=== PATIENT | female | born 1950 ===

== ENCOUNTER 2024-11-26 21:41 | Emergency (ER) | payer MEDICARE, SELFPAY ==
[2024-11-26 21:46] VITALS: BP 184/73; PULSE 67; RESP 16; TEMP 36.7; O2SAT 98; BMI 24.5
--- OUTSIDE RECORDS SUMMARY | 2024-11-27 00:09 | XMS_ITS | Clinical Summary ---
Author Organization [facility] Address [address] [place] [address] Care Team Providers Care Pull Worker Name Role Phone Lino Arenas MD Primary Care Provider [phone] Allergies Active Allergy Reactions Criticality Noted Date Comments Atenolol Other (See Comments) Fatigue Hydrochlorothiazide Other (See Comments) Hyponatremia Lisinopril DIZZINESS 06/14/2014 Medications pravastatin (PRAVACHOL) 40 MG tabletIndications:M ixed hyperlipidemia Take 1 tablet by mouth daily. 90 tablet 3 09/18/2024 12:33 PM CDT 5 Active metoPROLOL succinate (TOPROL-XL) 100 MG 24 hr tabletIndications:B enign hypertension with stage 3a chronic kidney disease (CMD) Take 1 tablet by mouth daily. 90 tablet 3 09/18/2024 12:33 PM CDT 5 Active amLODIPine (NORVASC) 10 MG tabletIndications:B enign hypertension with stage 3a chronic kidney disease (CMD) Take 1 tablet by mouth daily. 90 tablet 3 09/18/2024 12:33 PM CDT 5 Active Active Problems Problem Noted Date Diagnosed Date Hyperlipidemia 07/11/2015 Vasovagal syncope 07/27/2013 Intolerance of drug 07/27/2013 Overview (07/27/2013): Intolerance of beta blockers with extreme fatigue, depression Intolerance of losartan with elevation of serum creatinine Palpitations 07/13/2013 Overview (07/27/2013): 06/2013: Exercise stress test is significant for good functional capacity at 10.90 METs in a 62 year old , female, Mathew protocol 9.30 minutes, no exercise-induced chest pain,no exercise-induced ischemic ECG changes.High-grade ventricular ectopy including ventricular couplets, triplets, 4 beat run of nonsustained VT-asymptomatic.Myocardial perfusion scan reveals no definite areas of ischemia, EF is 66%. Holter monitor 07/2013 24 hr Holter recording significant for sinus rhythm with rates between 42-122 bpm, rare PAC's. 13,066 ventricular ectopic beats, constituting 13% of total beats. 16 episodes of nonsustained ventricular tachycardia noted, fastest being a 4 beat run at 179beats per minute, longest being a 4 beat run at 148bpm. No significant AV blocks no symptomatic spells noted. Assessment & Plan (07/27/2013 10:38 AM CDT): Holter results discussed with patient, as noted patient has intolerance of beta blockers, other options i.e. no specific medical management, trial of calcium channel blockers etc. are discussed with patient. Patient is most comfortable with the clinical followup without adding additional medications HTN (hypertension) Immunizations Immunization Administration Dates Next Due Devtoo 12Y+ (Requires Dilution) 04/24/2021 ,07/21/2020,06/30/2020 Influenza, high dose, quadrivalent, PF ,03/06/2022,02/23/2021 Influenza, high-dose, trivalent, PF 02/11,04/25/2018,03/05/2017,03/14,03/11/2015 Influenza, recombinant, quad rivalent, egg free, PF 02/26/2019 Influenza, split virus, trivalent 2015,03/11/2015,03/03/2014,03/26,02/18/2012,02/21/2011,02/17/2010 ,02/02/2009,05/01/2000,03/28/1999 Influenza, split virus, trivalent, PF 01/19/2020 Pneumococcal Polysaccharide PPV23 09/10/2018 Pneumococcal conjugate PCV 13 01/19/2016 Td (adult), 5 Lf tetanus tox oid, preserve free, adsorbed 07/31/2020,06/23/2002 Tdap 11/06/2010 Zostavax (Zoster Shingles) 02/15/2015 Zoster recombinant 06/15/2020,03/11/2020 Surgical History Surgery Date Site/Laterality Comments DEXA BONE DENSITY AXIAL SKELETON 01/29/2008 EXCISION OF LINGUAL TONSIL age 16 GYNECOLOGIC CRYOSURGERY 05/13/1974 GANGLION CYST EXCISION x 2, Left wrist COLONOSCOPY DIAGNOSTIC 06/17/2007 TONSILLECTOMY CARPAL TUNNEL RELEASE 08/02/2020 Bilateral RT endo CTR 08/02/20; LT endo CTR 08/16/20-[facility] Medical History Medical History Date Comments HTN (hypertension) HLD (hyperlipidemia) Family History Medical History Relation Comments Heart disease Brother Hypertension Father Hypertension Mother Relation Status Comments Brother Alive Father (Age 67) suicide Mother (Age 83) cva Social History Tobacco Use Types Packs/Day Years Used Date Smoking Tobacco: Never Smokeless Tobacco: Never Tobacco Cessation:Counseling Given: Not Answered Alcohol Use Standard Drinks/Week Comments Yes 10 (1 standard drink = 0.6 oz pu re alcohol) couple beer 5 days per week PHQ-2 Answer Date Recorded Initial depression screening score: 0 07/22/2024 Interpersonal Safety Answer Date Record ed RETIRE In the past year, hav e you ever been physically hurt, threatened, controlled or made to feel afraid by someone close to you? No 08/11/2020 RETIRE Currently, are you in a relationship where you are being physically hurt, threatened, controlled or made to feel afraid? No 08/11/2020 Alcohol Use Answer Date Recorded Audit C Total Score 3 07/25/2022 Inadequate Housing Answer Date Recorded Social Determinants: Housing (Overall Score Help er) 0 12/21/2018 Comments No Sex and Gender Information Value Date Recorded Sex Assigned at Not on file Legal Sex Female 2:49 PM CDT Gender Identity Not on file Sexual Orientation Not on file Obstetrics History Para Term AB IAB SAB Ectopic Molar Multiple Living Live Births 0 Last Filed Vital Signs Vital Sign Reading Time Taken Comments Blood Pressure 138/70 07/22/2024 10:14 AM CDT Pulse 66 07/22/2024 10:14 AM CDT Temperature 36.3 C (97.3 F) 07/22/2024 10:14 AM CDT Respiratory Rate 18 02/17/2024 9:21 AM CDT Oxygen Saturation 98% 07/22/2024 10:14 AM CDT Inhaled Oxygen Concentration - - Weight 60.3 kg (133 lb) 08/14/2024 9:38 AM CDT Height 157.5 cm (5' 2) 08/14/2024 9:38 AM CDT Body Mass Index 24.33 08/14/2024 9:38 AM CDT Plan of Treatment Upcoming Encounters Date Type Department Care Team (Late st Contact Info) Description 07/27/2025 8:00 AM CDT Lab Services [facility] [address] 08/04/2025 9:15 AM CDT Office Visit [facility] [address] Lino Arenas MD [address] [place] [id number] Health Maintenance Due Date Last Done Comments CT Colonography 1994 Fecal Occult Blood 1994 Sigmoidoscopy 1994 Hepatitis C Screening 2000 Colonoscopy 06/17/2017 06/17/2007 COVID-19 Vaccine ( season) 2024 04/24/2021, 07/21/2020, 06/30/2020 Respiratory Syncytial Virus (RSV) Vaccine 60+ (1 - 1-dose 75+ series) 2024 Influenza Vaccine (#1) 2025 , 03/28/2023, 03/06/2022, Additional history exists GFR 07/15/2025 07/15/2024, 06/14, 07/30/2022, Additional history exists Microalbumin Ratio 07/15/2025 07/15/2024, 07/15/2024 Depression Screening 07/22/2025 07/22/2024 Cologuard 03/24/2027 03/24/2024, 03/13, 03/24/2024, Additional history exists Colorectal Cancer Screening 03/24/2027 Osteoporosis Screening 07/22/2029 Postp oned from 2014 (Not Clinically Indicated) DTaP/Tdap/Td Vaccine (3 - Td or Tdap) 07/31/2030 07/31/2020, 11/06/2010, 06/23/2002 Pneumococcal Vaccine 50+ Completed 09/10/2018, 12/2015 Shingles Vaccine Completed 06/15/2020, , 02/15/2015 Medicare Advantage - Medicare Wellness Visit Completed 07/22/2024, 07/18/2023, 07/19/2021 Breast Cancer Screening Discontinued 08/15/19, 07/25/2022, 09/20/2020, Additional history exists HPV Vaccine Aged Out No longer eligi ble based on patient's age to complete this topic Hepatitis A Vaccine Aged Out No longe r eligible based on patient's age to complete this topic Hepatitis B Vaccine (For Physician/APC Discussion) Aged Out No longer elig ible based on patient's age to complete this topic Meningococcal Serogroup B Vaccine Aged Out No longer eligible based on patient's age to complete this topic Meningococcal Vaccine Aged Out No pretty shine eligible based on patient's age to complete this topic Procedures Procedure Name Priority Date/Time Associated Diagnosis Comments MAMMO SCREENING BILATERAL W ANAM Routine 08/14/2024 9:54 AM CDT Encounter for screening mammogram for malignant neoplasm of breast BASIC METABOLIC PANEL Routine 07/15/2024 8:00 AM RESIDENT SERVICES COORDINATOR Benign hypertension with stage 3a chronic kidney disease (CMD) Chronic hyponatremia COLOGUARD Routine 03/24/2024 from Last 3 Months or Most Recently Relevant to Health Maintenance Results * MAMMO SCREENING BILATERAL W ANAM (08/14/2024 9:54 AM CDT) Anatomical Region Laterality Modality Breast Bilateral Mammography 08/14/2024 11:0 7 AM CDT Impressions 08/14/2024 11:14 AM CDT IMPRESSION: No mammographic evidence for malignancy. RECOMMENDATION: Annual screening mammography and clinical breast exam. BI-RADS Category 2: Benign. In compliance with federal regulations, the patient will be sent a lay summary result of this report. Electronically Signed by: Xu Vogel MD Signed on: 08/14/2024 11:14 AM Created on Workstation ID: [id number] Signed on Workstation ID: [id number] Narrative 08/14/2024 11:14 AM CDT EXAM: MAMMO SCREENING BILATERAL W ANAM DATE OF EXAM: 08/14/2024 9:38 AM. COMPARISON EXAMS: 07/25/2022, 09/20/2020, 09/10/2018 CLINICAL INDICATION: Screening. RISK ASSESSMENT: This patient's lifetime risk of breast cancer is estimated at 4%, with an aged-matched comparison of 7%. Risk calculation was performed based on the current information documented in the patient's EPIC chart. TECHNIQUE: Bilateral digital screening mammogram with 2D and tomosynthesis. Computer-Aided Detection was utilized. DENSITY: The breasts are heterogeneously dense, which may obscure small masses. FINDINGS: No suspicious asymmetries or groups of microcalcifications. Several benign appearing rodlike calcifications of the right breast are stable. us Lino Arenas MD IMG BI PROCEDURES Final Resu lt * (ABNORMAL) Basic Metabolic Panel (07/15/2024 8:00 AM RESIDENT SERVICES COORDINATOR) Fasting Status 12 0 - 999 Hours 07/16/2024 3:[address] [facility] Sodium 133(L) 135 - 145 mmol/L 07/16/2024 3:[address] [facility] Potassium 4.8 3.4 - 5.1 mmol/L 07/16/2024 3:[address] [facility] Chloride 102 97 - 110 mmol/L 07/16/2024 3:[address] [facility] Carbon Dioxide 23 21 - 32 mmol/L 07/16/2024 3:[address] [facility] Anion Gap 13 7 - 19 mmol/L 07/16/2024 3:[address] [facility] Glucose 96 70 - 99 mg/dL 07/16/2024 3:[address] [facility] BUN 27(H) 6 - 20 mg/dL 07/16/2024 3:[address] [facility] Creatinine 1.12(H) 0.51 - 0.95 mg/dL 07/16/2024 3:[address] [facility] Glomerular Filtration Rate 52(L) >=60 07/16/2024 3:[address] [facility] Comment:eGFR 30-59 mL/min/1. 73m2 = Moderate decrease in kidney function. Stage 3 CKD (chronic kidney disease) or moderate kidney disease. Estimated GFR calculated using the CKD-EPI-R (2020) equation that does not include race in the creatinine calculation. BUN/Cr 24 7 - 25 07/16/2024 3:[address] [facility] Calcium 9.7 8.4 - 10.2 mg/dL 07/16/2024 3:[address] [facility] Blood VENOUS BLOOD SPECIMEN / Unknown Venipuncture / Unknown 07/15/2024 8:00 AM [facility] 07/15/[facility] 11:17 PM RESIDENT SERVICES COORDINATOR us Lino Arenas MD BKR LAB BLOOD ORDERABLES Fin al Result Performing Organization Address City/[facility]/ZIP Co de Phone Number [address] * COLOGUARD (03/24/2024) [facility] COLOGUARD Normal Normal UNKNOWN ORIGIN Comment:[employer] us Ext Result Console LABORATORY - EXTERNAL Final R esult Performing Organization Address City/[facility]/ZIP Co de Phone Number UNKNOWN ORIGIN from Last 3 Months or Most Recently Relevant to Health Maintenance Insurance [id number] [id number] [facility] MEDICARE ADVANTAGE * Guarantor: ROWAN MORENO Account Type Relation to Patient Date of Phone Billing Address Personal/Family * Guarantor: Rowan Moreno Account Type Relation to Patient Date of Phone Billing Address Personal/Family Self [address] [place] [phone] * Guarantor: Rowan Moreno Account Type Relation to Patient Date of Phone Billing Address Personal/Family Self 1950 [address] [place] [phone] Advance Directives * Do Not Resuscitate (Latest Code Status on File) Date Activated Date Inactivated Comments 08/16/2020 9:59 AM 08/16/2020 1:02 PM Question Answer Comments Patient is DNR: Yes Intubation: No Antiarrhythmics: No Cardioversion: No Vasopressor: No * Full Resuscitation Date Activated Date Inactivated Comments 08/16/2020 7:39 AM 08/16/2020 9:59 AM * Full Resuscitation Date Activated Date Inactivated Comments 08/02/2020 10:23 AM 08/02/2020 2:32 PM * Full Resuscitation Date Activated Date Inactivated Comments 08/02/2020 7:54 AM 08/02/2020 10:23 AM Care Teams Pull Worker Relationship Specialty Start Date End Date Lino Arenas MD [address] [place] [id number] PCP - General Family Practice 07/18/23
--- OUTSIDE RECORDS SUMMARY | 2024-11-27 00:09 | XMS_ITS | Clinical Summary ---
Author Organization [facility] Address [address] [place] [address] Care Team Providers Care Manager Statistical Programming Name Role Phone A, Unknown Practice Primary Care Provider [phone] Source Comments [facility],non-owned Affiliates and Associated Physician Practices is amultiple site organization consisting of ambulatory clinics and hospital sitesin [place], [place]. This disclosure is being madepursuant to the Care Everywhere program and may not contain all information available regarding this patient. Last updated 18.[facility] [email or web address] Allergies Active Allergy Reactions Criticality Noted Date Comments Atenolol Other,Unknown 01/10/2023 Fatigue Fatigue Hydrochlorothiazide Other,Unknown 01/10/2023 Hyponatremia Hyponatremia Lisinopril Dizziness 06/14/2014 Other Reaction(s): DIZZINESS Medications * Be aware that medications may not be up to date on this document. Alwaysverify current medications with the patient. pravastatin (Pravachol) 40 MG tablet Take 1 (one) tablet by mouth once daily 10/29/2022 Active amLODIPine (Norvasc) 10 MG tablet Take 1 (one) tablet by mouth once daily 10/29/2022 Active metoprolol succinate XL 24hr (Toprol XL) 100 MG tablet Take 1 (one) tablet by mouth once daily 10/29/2022 Active amoxicillin-cla vulanate (Augmentin) 875-125 MG tablet Take 1 (one) tablet by mouth 2 times daily with morning and evening meal 20 tablet 01/10/2023 Active Social History Tobacco Use Types Packs/Day Years Used Date Smoking Tobacco: Never Assessed Comments Unknown Sex and Gender Information Value Date Recorded Sex Assigned at Not on file Legal Sex Female 3:33 PM CDT Gender Identity Not on file Sexual Orientation Not on file Last Filed Vital Signs Vital Sign Reading Time Taken Comments Blood Pressure 162/67 01/10/2023 3:54 PM CDT Pulse 62 01/10/2023 3:54 PM CDT Temperature 36.9 C (98.5 F) 01/10/2023 3:54 PM CDT Respiratory Rate 16 01/10/2023 3:54 PM CDT Oxygen Saturation - - Inhaled Oxygen Concentration - - Weight - - Height - - Body Mass Index - - Plan of Treatment Health Maintenance Due Date Last Done Comments BONE DENSITY TESTING 1950 COLOGUARD (AGES 45-75) - COLON CA SCREENING 1950 COLON MONITORING 1950 COLONOSCOPY - COLON CA SCREENING 1950 CT COLONOGRAPHY - COLON CA SCREENING 1950 Colorectal Cancer Screening 1950 FIT - COLON CA SCREENING 1950 FLEX SIG - COLON CA SCREENING 1950 MAMMOGRAM 1950 HEPATITIS C SCREENING 11/12/1967 DTAP/TDAP/TD VACCINES (1 - Tdap) 1968 PNEUMOCOCCAL VACCINE 50+ (1 of 1 - PCV) 11/17/1999 ZOSTER VACCINE (1 of 2) 11/17/1999 COVID-19 VACCINE (4 - season) 2024 04/24/2021, 07/21/2020, 06/30/2020 DEPRESSION SCREENING 05/13/2024 MEDICARE AWV CALENDAR YEAR 2024 Respiratory Syncytial Virus (RSV) Vaccine Pt: or over 60 yrs (1 - 1-dose 75+ series) 2024 INFLUENZA VACCINE (#1) 2025 2, 02/23/2021, 01/19/2020, Additional history exists HEPATITIS B VACCINE Aged Out No longe r eligible based on patient's age to complete this topic HIB VACCINE Aged Out No longer eligi ble based on patient's age to complete this topic HPV VACCINE Aged Out No longer eligi ble based on patient's age to complete this topic MENINGOCOCCAL (Group B) VACCINE SHARED DECISION-MAKING Aged Out No longer eligible based on patient's age to complete this topic MENINGOCOCCAL GROUPS A/C/Y/W VACCINE Aged Out No longer eligible based on patient's age to complete this topic Insurance * Guarantor: Rowan Moreno Account Type Relation to Patient Date of Phone Billing Address Personal/Family Self [address] [place] [address] MANAGED MEDICARE ADV Care Teams Manager Statistical Programming Relationship Specialty Start Date End Date A, Unknown Practice [address] [place] [phone] PCP - General 01/10/23
--- OUTSIDE RECORDS SUMMARY | 2024-11-27 00:09 | XMS_ITS | Clinical Summary ---
Author Organization [facility] Address [address] [place] [address] Care Team Providers Care Manager Float Name Role Phone Unavailable Primary Care Provider Unavailabl e Social History Tobacco Use Types Packs/Day Years Used Date Smoking Tobacco: Never Assessed Comments Unknown Sex and Gender Information Value Date Recorded Sex Assigned at Not on file Legal Sex Female 12:54 PM CDT Gender Identity Not on file Sexual Orientation Not on file Plan of Treatment Health Maintenance Due Date Last Done Comments Colorectal Cancer Screening Colonoscopy (10 Years) 1950 Hepatitis C 11/17/1967 DTaP, Tdap and Td Vaccines ( 1 - Tdap) 1968 Pneumococcal Vaccine: 50+ Ye ars (1 of 1 - PCV) 11/17/1999 Zoster Vaccines (1 of 2) 11/17/1999 Dexa Scan (General) 2014 COVID-19 Vaccine (2023-2 5 season) 2024 RSV Immunization or 60+ Years (1 - 1-dose 75+ series) 2024 Meningococcal B Vaccine Aged Out No l onger eligible based on patient's age to complete this topic Meningococcal Vaccine Aged Out No pretty shine eligible based on patient's age to complete this topic RSV Immunizations Under 20 Months Aged Out No longer eligible based on patient's age to complete this topic
== END 2024-11-27 00:08 | disposition left against medical advice (07) ==
LOC: ED 11-27 00:07
DX: Z53.21 Procedure and treatment not carried out due to patient leaving prior to being seen by health care provider (principal)